=== PATIENT | female | born 1995 | race African-American/Black ===

== ENCOUNTER 2018-08-27 21:56 | Emergency (ER) | payer SELFPAY ==
--- NOTE | 2018-08-27 23:13 | ED ---
Headache - HPI Summary HPI Summary: This patient is a 23 year old female presenting to the emergency room with a cc of headache that began earlier today. She states she has also developed fever and chills. She took 800mg of Advil with improvement. She rates the pain 4/10 in severity at this time. Pt also c/o a mild sore throat without a cough or abd pain. The patient did return from [facility] on 08-13-18 without and sx developing until today. - History Of Current Complaint Chief Complaint: EDHeadache Stated Complaint: HEADACHE, CHILLS Time Seen by Provider: 08/27/18 22:52 Hx Obtained From: Patient Onset/Duration: Started days ago, Still Present Initially Headache Was: Initial Pain Scale(0-10)= - 7 Currently Pain Is: Current Pain Scale(0-10)= - 4 Timing: Constant Associated Signs And Symptoms: Fever, Other (Noted In Comments) - chills - Allergies/Home Medications Allergies/Adverse Reactions: Allergies Allergy/AdvReac Type Severity Reaction Status Date / Time No Known Allergies Allergy Verified 08/27/18 22:06 Home Medications: Home Medications NK [No Home Medications Reported] 08/27/18 [History Confirmed 08/27/18] PMH/Surg Hx/FS Hx/Imm Hx Endocrine/Hematology History: Denies: Hx Unexplained Bleeding Cardiovascular History: Denies: Hx Cardiac Arrest, Hx Congestive Heart Failure, Hx Deep Vein Thrombosis, Hx Hypotension Respiratory History: Denies: Hx Pneumonia, Hx Pulmonary Embolism Infectious Disease History: No Infectious Disease History: Reports: Traveled Outside the [place] in Last 30 Days - [place] - Family History Known Family History: Positive: Non-Contributory Negative: Blood Disorder - Social History Alcohol Use: Occasionally Substance Use Type: Reports: None Smoking Status (MU): Never Smoked Tobacco Review of Systems Positive: Fever, Chills Positive: Sore Throat Negative: Cough Negative: Abdominal Pain Positive: Headache All Other Systems Reviewed And Are Negative: Yes Physical Exam - Summary Physical Exam Summary: Appearance: Well appearing, no pain distress Skin: warm, dry, reflects adequate perfusion Head/face: normal Eyes: EOMI, CURT ENT: normal Neck: supple, non-tender Respiratory: CTA, breath sounds present Cardiovascular: RRR, pulses symmetrical Abdomen: non-tender, soft Musculoskeletal: normal, strength/ROM intact Neuro: normal, sensory motor intact, A&Ox3 Triage Information Reviewed: Yes Vital Signs On Initial Exam: Initial Vitals Temp Pulse Resp BP Pulse Ox 102.1 F 107 16 114/73 99 08/27/18 21:58 08/27/18 21:58 08/27/18 21:58 08/27/18 21:58 08/27/18 21:58 Vital Signs Reviewed: Yes Diagnostics - Vital Signs Vital Signs Temp Pulse Resp BP Pulse Ox 08/27/18 21:58 102.1 F 107 16 114/73 99 - Laboratory Result Diagrams: 08/27/18 23:39 08/27/18 23:39 Lab Statement: Any lab studies that have been ordered have been reviewed, and results considered in the medical decision making process. - Radiology CXR Radiology Interpretation Completed By: ED Physician Summary of Radiographic Findings: no acute disease. Pending official report Headache Course/Dx - Course Assessment/Plan: This patient is a 23 year old female presenting to the emergency room with a cc of headache that began earlier today. CXR reveals, no acute disease. Pending official report. Bloodwork and UA obtained. Pt was negative for influenza. Her headache has resolved at this point. Pt offered LP to r/o meningitis she declined wants to go home and f/u pcp. Strict return precautions given. - Diagnoses Provider Diagnoses: Fever, Viral syndrome Discharge - Sign-Out/Discharge Documenting (check all that apply): Patient Departure Patient Received Moderate/Deep Sedation with Procedure: No - Discharge Plan Condition: Stable Disposition: HOME Patient Education Materials: Viral Syndrome (ED) Referrals: [facility] [place] [facility] REFERRAL [Outside] Additional Instructions: Follow up with your primary care physician in 1-3 days. RETURN TO THE EMERGENCY DEPARTMENT FOR CHANGING OR WORSENING SYMPTOMS - Attestation Statements Document Initiated by Scribe: Yes Documenting Scribe: Gato Dillon Provider For Whom Scribe is Documenting (Include Credential): Omkar Lua MD Scribe Attestation: Gato Nolan , scribed for Omkar Lua MD on 08/28/18 at 0214. Status of Scribe Document: Ready
[2018-08-27 23:51] LABS: ABS Basophils 0.1 10^3/ul (0-0.2); ABS Eosinophils 0 10^3/ul (0-0.6); ABS Monocytes 0.7 10^3/ul (0-0.8); ABS Neutrophils 11.4 10^3/ul (1.5-7.7); ABS Nucleated RBC 0 10^3/ul; Eosinophil % 0 %; Hematocrit 37 % (35-47); Hemoglobin 12.3 g/dl (12.0-16.0); Lymphocyte % 7.9 %; Mean Corpuscular HGB Conc 33 g/dl (31-36); Mean Corpuscular Hemoglobin 27 pg (27-31); Mean Corpuscular Volume 81 fL (80-97); Mean Platelet Volume 7.6 fL (7.4-10.4); Nucleated Red Blood Cells % 0; Platelet Count 246 10^3/ul (150-450); Red Blood Count 4.61 10^6/ul (4.00-5.40); Red Cell Distribution Width 16 % (10.5-15); White Blood Count 13.2 10^3/ul (3.5-10.8)
[2018-08-28] LABS: Activated Partial Thrombo Time 32.7 seconds (26.0-36.3); INR 1.24 (0.77-1.02)
[2018-08-28 00:11] LABS: ALT 14 U/L (7-52); AST 15 U/L (13-39); Albumin 4.3 g/dL (3.2-5.2); Albumin/Globulin Ratio 1.4 (1-3); Alkaline Phosphatase 41 U/L (34-104); Anion Gap 7 mmol/L (2-11); BUN/Creatinine Ratio 11.9 (8-20); Blood Urea Nitrogen 8 mg/dL (6-24); CO2 Carbon Dioxide 24 mmol/L (22-32); Calcium 9.3 mg/dL (8.6-10.3); Chloride 103 mmol/L (101-111); EGFR African American 134.4 (>60); EGFR Non-African American 111.1 (>60); Globulin 3.1 g/dL (2-4); Glucose 122 mg/dL (70-100); Potassium 3.4 mmol/L (3.5-5.0); Sodium 134 mmol/L (135-145); Total Protein 7.4 g/dL (6.4-8.9)
[2018-08-28 00:18] LABS: HCG Pregnancy < 0.60 mIU/mL
[2018-08-28 00:42] LABS: Urine Appearance Clear; Urine Bacteria Absent (Absent); Urine Bilirubin Negative (Negative); Urine Blood 1+ (Negative); Urine Color Straw; Urine Glucose Negative (Negative); Urine Ketones Negative (Negative); Urine Nitrite Negative (Negative); Urine Protein Negative (Negative); Urine Red Blood Cell Trace(0-2/hpf) (Absent); Urine Specific Gravity 1.003 (1.010-1.030); Urine Squamous Epithelial Cell Present (Absent); Urine Urobilinogen Negative (Negative); Urine White Blood Cell Absent (Absent)
[2018-08-28 00:53] LABS: Influenza A Molecular NEGATIVE (Negative); Influenza B Molecular NEGATIVE (Negative)
[2018-08-28 01:53] VITALS: BP 108/66
== END 2018-08-28 01:52 | disposition home or self-care (01) ==
LOC: ED 21:56
DX: B34.9 Viral infection, unspecified (principal); R50.9 Fever, unspecified; R51 Headache; J02.9 Acute pharyngitis, unspecified
CPT/HCPCS: 36415; 71046; 80053; 81003; 81015; 83605; 84702; 85025; 85610; 85730; 87040; 87651; 99282

== ENCOUNTER 2018-09-02 14:09 | Observation (INO) | payer OTHER ==
--- NOTE | 2018-09-02 16:28 | ED ---
Headache - HPI Summary HPI Summary: This pt is a 23 y/o female presenting to [facility] c/o headache since 08/27/18. Pt reports she came to the ED on 08/27/18 for fever, headache, neck and back pain and was diagnosed with a viral syndrome. Pt notes she came back to the ED on 09/15 for the same symptoms persisting and additionally incoherent words. Pt had a lumbar puncture on 07/29 that was negative for meningitis. Pt presents to the ED today with persistent headache, eye pain, back pain, neck pain. Pt states her headache is aggravated with sitting up and ambulating and it is alleviated with lying down. She reports she has been eating well and drinking a lot of liquids. Denies fever recently, blurry vision, nausea, vomiting. Pt has been taking Tylenol, Advil, and Aleve for her pain with minimal relief. LMP: started on 08/23/18. - History Of Current Complaint Chief Complaint: EDHeadache Stated Complaint: HEADACHE Hx Obtained From: Patient Onset/Duration: Started days ago, Still Present Currently Pain Is: Current Pain Scale(0-10)= - 4, Moderate Timing: Days Location of Headache: Diffuse Aggravating Factor: Exertion, Other - sitting up Allevating Factors: Other (Noted In Comments) - lying down Associated Signs And Symptoms: Neck Pain, Other (Noted In Comments) - POS: back pain, pain in eyes. NEG: fever, blurry vision, nausea, vomiting. - Allergies/Home Medications Allergies/Adverse Reactions: Allergies Allergy/AdvReac Type Severity Reaction Status Date / Time No Known Allergies Allergy Verified 08/29/18 14:51 PMH/Surg Hx/FS Hx/Imm Hx Endocrine/Hematology History: Denies: Hx Unexplained Bleeding Cardiovascular History: Denies: Hx Cardiac Arrest, Hx Congestive Heart Failure, Hx Deep Vein Thrombosis, Hx Hypotension, Hx Pacemaker/ICD Respiratory History: Denies: Hx Pneumonia, Hx Pulmonary Embolism - Surgical History Surgery Procedure, Year, and Place: WISDOM TEETH Infectious Disease History: No Infectious Disease History: Reports: Traveled Outside the [place] in Last 30 Days - Family History Known Family History: Negative: Hypertension, Diabetes, Blood Disorder - Social History Alcohol Use: Occasionally Substance Use Type: Reports: None Smoking Status (MU): Never Smoked Tobacco Review of Systems Negative: Fever, Chills Eyes: Other - POS: eye pain bilateral Negative: Blurred Vision Negative: Vomiting, Nausea Musculoskeletal: Other - POS: neck and back pain Positive: Headache All Other Systems Reviewed And Are Negative: Yes Physical Exam - Summary Physical Exam Summary: VITAL SIGNS: Reviewed. GENERAL: Patient is a well-developed and nourished female who is lying comfortable in the stretcher. Patient is not in any acute respiratory distress. HEAD AND FACE: No signs of trauma. No ecchymosis, hematomas or skull depressions. No sinus tenderness. EYES: PERRLA, EOMI x 2, No injected conjunctiva, no nystagmus. EARS: Hearing grossly intact. Ear canals and tympanic membranes are within normal limits. MOUTH: Oropharynx within normal limits. NECK: Supple, trachea is midline, no adenopathy, no JVD, no carotid bruit, no c- spine tenderness, neck with full ROM. CHEST: Symmetric, no tenderness at palpation LUNGS: Clear to auscultation bilaterally. No wheezing or crackles. CVS: Regular rate and rhythm, S1 and S2 present, no murmurs or gallops appreciated. ABDOMEN: Soft, non-tender. No signs of distention. No rebound, no guarding, and no masses palpated. Bowel sounds are normal. EXTREMITIES: FROM in all major joints, no edema, no cyanosis or clubbing. NEURO: Alert and oriented x 3. No acute neurological deficits. Speech is normal and follows commands. SKIN: Dry and warm Triage Information Reviewed: Yes Vital Signs On Initial Exam: Initial Vitals Temp Pulse Resp BP Pulse Ox 97.5 F 142 18 137/95 100 09/02/18 14:10 09/02/18 14:10 09/02/18 14:10 09/02/18 14:10 09/02/18 14:10 Vital Signs Reviewed: Yes Diagnostics - Vital Signs Vital Signs Temp Pulse Resp BP Pulse Ox 09/02/18 14:10 97.5 F 142 18 137/95 100 - Laboratory Result Diagrams: 09/03/18 06:23 09/03/18 06:23 Lab Statement: Any lab studies that have been ordered have been reviewed, and results considered in the medical decision making process. - CT Brain CT CT Interpretation Completed By: Radiologist Summary of CT Findings: IMPRESSION: No acute intracranial abnormality. Dr. Phelps has reviewed this report. Cervical spine CT CT Interpretation Completed By: Radiologist Summary of CT Findings: IMPRESSION: 1. No acute cervical spine fracture or subluxation. 2. The cervical lordosis is mildly reversed. 3. There is an increase in epidural isodensity within the upper cervical spine,. most significant at the C2 vertebral level. Differential considerations include. epidural fluid collection and epidural hematoma, although additional pathology. cannot be excluded. Correlation with MRI of the cervical spine with/without. contrast is recommended. 4. Minimal narrowing of the thecal sac is identified in the C2 vertebral level. due to the abnormal epidural density. 5. Nonspecific mildly enlarged bilateral level II cervical lymph nodes. visualized. 6. Additional findings described above. Dr. Phelps has reviewed this report. - EKG 14:21 Cardiac Rate: NL - at 67 bpm EKG Rhythm: Sinus Rhythm Summary of EKG Findings: No ST elevations. Re-Evaluation - Re-Evaluation First Eval Re-Evaluation Time: 19:44 Comment: I reviewed Dr. Brooks' recommendation with the pt and father. Pt continues to have headache and neck pain. Headache Course/Dx - Course Assessment/Plan: Blood work without a significant abnormality except for PE is a 41, AST of 12, CRP of 8.48, urinalysis is negative for UTI. Initially in the ED the patient was given 2 L IV fluids, the patient was given Benadryl, Reglan, and morphine for the pain. At approximately 2 hours of observation the patient continues to have neck pain and pain in the results called. At this point I discussed my findings test results with Dr. Brooks from anesthesiology and she recommends no blood patch, she recommends caffeine, IV fluids, and analgesics. However the patient continues to have pain therefore the patient was given and a muscle relaxant and some prednisone for inflammation. At this point I believe that the patient needs admission for pain control and observation. Therefore discussed my physical exam, findings and test results with Dr. La from the hospitalist services who agrees to admit the patient. However, she recommends to do a head CT and also with the C-spine CT. Head CT impression: No acute intracranial abnormality. C spine CT IMPRESSION: 1. No acute cervical spine fracture or subluxation. 2. The cervical lordosis is mildly reversed. 3. There is an increase in epidural isodensity within the upper cervical spine,. most significant at the C2 vertebral level. Differential considerations include. epidural fluid collection and epidural hematoma, although additional pathology. cannot be excluded. Correlation with MRI of the cervical spine with/without. contrast is recommended. 4. Minimal narrowing of the thecal sac is identified in the C2 vertebral level. due to the abnormal epidural density. 5. Nonspecific mildly enlarged bilateral level II cervical lymph nodes. visualized. 6. Additional findings described above. At this time I discussed my physical exam, findings and test results with Dr. Coronado from an neurosurgery and he requested for the patient to get an MRI and admission to the hospital. Dr. Coronado will consult for this patient. I discussed my physical exam and findings with Dr. La from the hospital services was accepted the patient for admission. At this point the patient is more comfortable. The patient was given pain medications and she reports that the pain has improved. However because of abnormal findings and the C-spine CT we will admit the patient for pain control and the MRI as well as neurosurgery consult. - Diagnoses Differential Diagnosis/HQI/PQRI: Epidural Hematoma, Subdural Hematoma, Migraine , Sinus Headache, Tension Headache Provider Diagnoses: Intractable headache, Neck pain - Physician Notifications Discussed Care Of Patient With: Roxanne Brooks - anesthesiologist Time Discussed With Above Provider: 19:37 Instructed by Provider To: Other - Discussed pt care with Dr. Brooks, anesthesiologist, who recommends for pt to take caffeine, continue fluids and ibuprofen. If she is not better then she is to see her PCP and schedule a blood patch with an anesthesiologist. [21:44] I discussed with Dr. Coronado, neurosurgeon, who recommends MRI for abnormal cervical spine CT and admission to hospitalist. [21:52] Discussed with Dr. La, hospitalist, who accepted the pt for admission. Discharge - Sign-Out/Discharge Documenting (check all that apply): Patient Departure - Admit to [facility] [place] Patient Received Moderate/Deep Sedation with Procedure: No - Discharge Plan Condition: Stable Disposition: ADMITTED TO [facility] - Billing Disposition and Condition Condition: STABLE Disposition: Admitted to [facility] - Attestation Statements Document Initiated by Scribe: Yes Documenting Scribe: Marianne Choe Provider For Whom Scribe is Documenting (Include Credential): Sanjay Phelps MD Scribe Attestation: Marianne Nolan, scribed for Sanjay Phelps MD on 09/03/18 at 1053. Scribe Documentation Reviewed: Yes Provider Attestation: The documentation as recorded by the scribe, Marianne Choe accurately reflects the service I personally performed and the decisions made by me, Sanjay Phelps MD Status of Scribe Document: Viewed
[2018-09-02] MEDS ORDERED: NS 0.9% 1000 ML** 2,000 ML IV ONE (16:35)
[2018-09-02] MEDS ORDERED: Morphine VIAL* 10 MG/ML 1 ML VIAL IV ONE (16:35)
[2018-09-02] MEDS ORDERED: Metoclopramide IV* 5 MG/ML 2 ML VIAL IV ONE (16:35)
[2018-09-02] MEDS ORDERED: diPHENhydraMINE IV* 50 MG/ML 1 ml VIAL (BENADRYL) IV ONE (16:35)
[2018-09-02] MEDS ORDERED: diPHENhydraMINE PO* 25 MG ONE (17:11)
[2018-09-02 17:34] LABS: ABS Basophils 0.1 10^3/ul (0-0.2); ABS Eosinophils 0.1 10^3/ul (0-0.6); ABS Monocytes 0.4 10^3/ul (0-0.8); ABS Neutrophils 4.5 10^3/ul (1.5-7.7); ABS Nucleated RBC 0 10^3/ul; Eosinophil % 1.6 %; Hematocrit 37 % (35-47); Hemoglobin 12.3 g/dl (12.0-16.0); Lymphocyte % 28.7 %; Mean Corpuscular HGB Conc 33 g/dl (31-36); Mean Corpuscular Hemoglobin 27 pg (27-31); Mean Corpuscular Volume 81 fL (80-97); Mean Platelet Volume 7.3 fL (7.4-10.4); Nucleated Red Blood Cells % 0; Platelet Count 334 10^3/ul (150-450); Red Blood Count 4.59 10^6/ul (4.00-5.40); Red Cell Distribution Width 16 % (10.5-15); White Blood Count 7.1 10^3/ul (3.5-10.8)
[2018-09-02] MEDS ORDERED: diPHENhydraMINE PO* 25 MG PO ONE (17:36)
[2018-09-02 17:51] LABS: Albumin 4.1 g/dL (3.2-5.2); Albumin/Globulin Ratio 1.3 (1-3); BUN/Creatinine Ratio 11.9 (8-20); Calcium 9.5 mg/dL (8.6-10.3); EGFR African American 134.4 (>60); EGFR Non-African American 111.1 (>60); Globulin 3.2 g/dL (2-4); Total Bilirubin 0.3 mg/dL (0.2-1.0); Total Protein 7.3 g/dL (6.4-8.9)
[2018-09-02 18:49] LABS: Erythrocyte Sed Rate 41 mm/Hr (0-14)
[2018-09-02 19:10] LABS: C Reactive Protein 8.48 mg/L (<8.01)
[2018-09-02] MEDS ORDERED: Cyclobenzaprine TAB* 10 MG PO ONE (19:54)
[2018-09-02] MEDS ORDERED: Dexamethasone IV* 4 MG/ML 1 ML (4 MG) IV SLOW PU ONE (19:54)
[2018-09-02 20:23] LABS: Urine Appearance Clear; Urine Bilirubin Negative (Negative); Urine Blood Negative (Negative); Urine Color Yellow; Urine Glucose Negative (Negative); Urine Ketones Negative (Negative); Urine Nitrite Negative (Negative); Urine Protein Negative (Negative); Urine Specific Gravity 1.014 (1.010-1.030); Urine Urobilinogen Negative (Negative)
[2018-09-02] MEDS ORDERED: Acetaminophen TAB* 325 MG PO PRN (22:45)
[2018-09-03] MEDS ORDERED: oxyCODONE/Acetamin 5/325 MG* TAB PO PRN (01:35)
[2018-09-03] MEDS ORDERED: Morphine INJ* 2 MG/ML 1 ML SYRINGE (TWO MG - NEW SYRINGE VERSION) IV PRN (01:35)
--- NOTE | 2018-09-03 02:17 | HP ---
CC: [facility] * HISTORY AND PHYSICAL: DATE OF ADMISSION: 09/02/18 PROVIDER: Lisset Payton NP PRIMARY CARE PROVIDER: [facility] ATTENDING PHYSICIAN WHILE IN THE HOSPITAL: Dr. La * (dictated by Lisset Payton NP). CHIEF COMPLAINT: Headache. HISTORY OF PRESENT ILLNESS: Ms. Amaya is a 23-year-old female with no significant past medical history. The patient initially presented to the emergency room on 08/27/18 with complaints of fever, headache, and neck pain. She was given IV fluids and medications in the emergency room and discharged home and told to treat her headache with [id number] medications. The patient had continued headaches and neck pain and re-presented to the emergency room on 08/29/18. At that time, they did a lumbar puncture. 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 The CSF fluid was within normal limits. The patient had blood cultures drawn, again that were within normal limits showing no growth. Again, the patient was given IV fluids and medications in the emergency room and discharged home. The patient again reports to the emergency room on 09/02/18 complaining of headache and neck pain. She denies any fevers. Denies any nausea, vomiting, or diarrhea. Denies any recent sick contacts. She does report she was recently was in [place] for 5 weeks and at that time, she did not take medications for malaria as directed. The patient did have blood to look for parasites that was negative. She had a flu A and B swab that was also negative on previous presentations to the emergency room. At this time, the patient continues to have neck pain and headache. She reports the headache is a throbbing sometimes pressure and squeezing. She denies any photophobia. She does report neck pain that becomes worse with sitting forward. While in the emergency room, the patient had a CT of the brain and C-spine. C- spine imaging revealed no acute cervical spine fracture or subluxation. Cervical lordosis with mild reverse. There is an increased epidural isodensity in the upper cervical spine, most significant at C2 vertebral level. Differential considerations include epidural fluid collection, epidural hematoma , although additional pathology cannot be excluded and recommended MRI with and without contrast. They do report mild narrowing of the thecal sac is identified in the C2 vertebral level due to the abnormal epidural density. Nonspecific mildly enlarged bilateral level 2 cervical lymph nodes were visualized. No additional findings. Due to the concern of possible hematoma in the cervical region and continued headache, we were asked by the emergency room physician to see and evaluate her for admission. PAST MEDICAL HISTORY: Significant for acne. PAST SURGICAL HISTORY: No surgical history. HOME MEDICATIONS: Topical acne treatment. ALLERGIES: No known drug allergies. FAMILY HISTORY: No reported history of coronary artery disease, diabetes. REVIEW OF SYSTEMS: The patient has no documented fever. No unintended weight loss. There is no double vision. No ear discharge. No rhinorrhea. She does report trouble focusing with her eyes at times. No current issue at this presentation. The patient does complain of neck pain and headache. Reports the headache is throbbing and pressure, worse with bringing her head forward. She denies any chest pain, shortness of breath, orthopnea, or nocturnal dyspnea. She denies any nausea, vomiting, diarrhea, urinary frequency, or urgency. She denies any seizures or loss of consciousness. Denies any skin ulcerations. Review of 14 systems was completed; all others were negative. PHYSICAL EXAMINATION GENERAL: At this time, Ms. Amaya is a 23-year-old female. She is resting. She is alert and oriented, resting on the stretcher in the emergency room. She does not appear to be in any acute distress. VITAL SIGNS: Blood pressure 128/89, heart rate 75, respirations were 16, O2 saturation 99%, temperature was 98.6. HEENT: Head is atraumatic, normocephalic. Eyes: EOMs are intact. Sclerae anicteric and not pale. Oral mucosa appears to be moist. No oropharyngeal erythema. NECK: Supple mild tenderness with movement. LUNGS: Clear to auscultation bilaterally. No wheezes, rales, or rhonchi. CARDIAC: S1, S2. Regular rate and rhythm. No murmurs, rubs, or gallops. ABDOMEN: Soft and nontender. Bowel sounds are present x4. EXTREMITIES: She is able to move all 4 extremities with 5/5 strength. Radial pulses are +2 bilaterally. NEUROLOGIC: She is awake, alert, and oriented x3. Speech is clear. Thought process intact. Handgrips are equal. Tongue is midline. No pronator drift is noted. Upper body strength is grossly intact. SKIN: Intact. DIAGNOSTIC STUDIES/LAB DATA: WBCs were 7.1, RBCs 4.59, hemoglobin 12.3, hematocrit 37, platelet count 334. Sodium 141, potassium 4.0, chloride 109, carbon dioxide was 28, anion gap was 4, BUN was 8, creatinine 0.67, lactic acid 0.7, glucose was 91, calcium 9.5. Total bilirubin 0.30. ASTs were 12, ALTs were 11, alkaline phosphatase was 41. C-reactive protein was 8.48 down from 122.15. Urine was within normal limits. ESR was 41. She had a CT of the brain, which showed no acute intracranial pathology. No masses. She had a CT of the C-spine. Radiologist's impression: 1. No acute cervical spine fracture or subluxation. 2. Cervical lordosis, mildly reversed. 3. There is an increased epidural isodensity within the upper cervical spine more significant at the C2 vertebral level. Differential considerations include epidural fluid collection and epidural hematoma, although additional pathology cannot be excluded and recommended an MRI with and without contrast. There is minimal narrowing of the thecal sac that is identified at C2 vertebral level due to abnormal epidural density, nonspecific and mildly enlarged bilateral level 2 cervical lymph nodes visualized. ASSESSMENT AND PLAN: Ms. Amaya is a 23-year-old female with no significant past medical history except for recent travel to [place], for which she stayed there for 5 weeks, who presented to the emergency room for the 3rd visit complaining of headache and neck pain. The patient does report that she last had a fever on Friday, which was 102, has had no fever since, but does report she is taking Tylenol and ibuprofen around the clock. She will admitted under observation for: 1. Headache: It is unclear of the cause of her headache at this time. She has recently had an LP which did not show any bacterial meningitis. Her headache could be associated with post-LP headache. Her cervical C-spine does show concern for possible epidural fluid collection versus hematoma. She did have an MRI with and without contrast that is currently pending. Dr. Coronado from Neurosurgery has also been contacted due to concern of epidural fluid collection versus hematoma and is currently awaiting MRI results. We will treat her headache with Tylenol as needed for pain as this time. 2. Neck pain: I suspect the neck pain could be related to possible epidural fluid collection versus epidural hematoma. At this time, she had an MRI with and without contrast, which is currently pending. Further recommendations will be based on conclusion of further imaging. 3. FEN: She can have a regular diet. 4. Code status: She is a full code. 5. DVT prophylaxis: We will encourage ambulation as she does not have any risk factors at this time. TIME SPENT: Time spent on this admission was 60 minutes, greater than half that time was spent [id number] with the patient and her father obtaining my history and physical and the events leading thus far to her hospitalization, performing my physical exam, and implementing my plan of care. I have discussed this with my attending, Dr. La; she is in agreement with my plan. LISSET PAYTON, BROKERAGE MANAGER [id number]/[facility] #: [id number] MTDAnna
[2018-09-03 06:48] LABS: ABS Basophils 0 10^3/ul (0-0.2); ABS Eosinophils 0 10^3/ul (0-0.6); ABS Lymphocytes 1.4 10^3/ul (1.0-4.8); ABS Monocytes 0.4 10^3/ul (0-0.8); ABS Nucleated RBC 0 10^3/ul; Eosinophil % 0.1 %; Hematocrit 37 % (35-47); Hemoglobin 12.2 g/dl (12.0-16.0); Lymphocyte % 15.7 %; Mean Corpuscular HGB Conc 33 g/dl (31-36); Mean Corpuscular Hemoglobin 27 pg (27-31); Mean Corpuscular Volume 81 fL (80-97); Mean Platelet Volume 7.4 fL (7.4-10.4); Nucleated Red Blood Cells % 0.1; Platelet Count 368 10^3/ul (150-450); Red Blood Count 4.53 10^6/ul (4.00-5.40); Red Cell Distribution Width 16 % (10.5-15); White Blood Count 8.8 10^3/ul (3.5-10.8)
[2018-09-03 07:04] LABS: Calcium 9.8 mg/dL (8.6-10.3); EGFR African American 168.8 (>60); EGFR Non-African American 139.5 (>60); Potassium 4.2 mmol/L (3.5-5.0)
[2018-09-03] MEDS ORDERED: oxyCODONE TAB* 5 MG TAB PO PRN (10:27)
--- NOTE | 2018-09-03 10:33 | PN ---
"Progress Note - Progress Note Date of Service: 09/03/18 Note: Search Terms: tomi condon, 1995 Search Date: 09/03/2018 10:33:04 AM The Drug Utilization Report below displays all of the controlled substance prescriptions, if any, that your patient has filled in the last twelve months. The information displayed on this report is compiled from pharmacy submissions to the Department, and accurately reflects the information as submitted by the pharmacies. This report was requested by: Gilbert Hua | Reference #: [id number] There are no results for the search terms that you entered."
[2018-09-03 11:28] VITALS: BP 124/74
--- NOTE | 2018-09-03 12:01 | DS ---
DISCHARGE SUMMARY: DATE OF ADMISSION: DATE OF DISCHARGE: 09/03/18 HOSPITAL COURSE: This 23-year-old woman was admitted because of a headache. She states herself that she thought originally she had a viral illness giving her headache. She came to the emergency room complaining of headaches at nighttime more than once. She had a lumbar puncture with normal results. Following this, she said she had a different type of headache, which she attributed to the lumbar p uncture. She had a CT scan of the brain which showed an increased epidural isodensity in the upper c ervical spine. MRI showed some thickening of the dura and no fluid collection. I have spoken direct ly to Dr. Coronado who has evaluated her and felt that she could go home. By her report, he did no t find any significant findings. Her headache today on the day of discharge was level 6. She had had some acetaminophen. Her pain wa s worse before the acetaminophen; however, she felt she still had too much of headache to be able to sit in classes. I have given her a note to be excused from classes through 09/06/18. She should fol low up with the [facility], particularly if she is still having headache, althoug h it may simply persist for more than a few days. I noted she had no fever here. She did have some inflammatory markers. Her sedimentation rate was 41 on 09/02/18, it was only measured to once. Her CRP was measured twice that was 122 on 08/29/18 and 8.48 on 09/02/18. FINAL DIAGNOSIS: Postlumbar puncture headache. DISCHARGE MEDICATION: Oxycodone 5 mg one half to one tablet every 4 hours p.r.n., dispensed 15. CONDITION ON DISCHARGE: Stable. DISPOSITION ON DISCHARGE: Discharged home. [id number]/[facility] #: [id number]
--- NOTE | 2018-09-04 09:13 | CONS ---
CONSULTATION NOTE: DATE OF CONSULT: 09/03/18 HISTORY OF PRESENT ILLNESS: The patient is a very pleasant 23-year-old female who initially presented to the emergency room on 08/27/18 with complaints of fever, headache and neck pain. The patient had IV fluids and medications and was discharged home. The patient continued to have headaches and neck pain and returned to the emergency room on 08/29/18. The patient by that time had the lumbar puncture with no signs of infection, as well as blood cultures with no growth. The patient returned on 09/02/18 again to the emergency room because of headache and neck pain. It was postural. The patient reports that her previous headache had improved. She continued with headache when she was getting out of the bed, which was related to recumbency. The patient had a CT scan of the brain that was negative and had the CT of the cervical spine that revealed increased density in the epidural space and for this reason, had an MRI , which revealed patchy meningeal enhancement and was admitted by the hospitalist service. The patient at this point denies any headache. Denies any nausea or vomiting. Denies any seizures. Denies any problems with her vision or her speech. Denies any problems with her hearing. She denies diplopia. She denies any weakness, numbness, or tingling of extremities. She ambulates with difficulty. She denies any urinary or GI incontinence. 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 She is single and she is accompanied at the bedside by her father. PAST MEDICAL HISTORY: Acne. PAST SURGICAL HISTORY: Negative. MEDICATIONS: Topical acne treatment. ALLERGIES: No known drug allergies. FAMILY HISTORY: Noncontributory. SOCIAL HISTORY: Tobacco negative. Alcohol negative. Recreational use negative. Of note, the patient has a recent travel to [facility] for 5 weeks and she was reported not to take any medication for malaria. PHYSICAL EXAM: The patient is not in acute distress. She is awake, alert, oriented x3. Her pupils are equal and reactive. Cranial nerves II through XII are grossly intact. Motor 5/5 in all extremities. Sensory grossly intact to light touch. Deep tendon reflexes are +2 bilaterally. No clonus. No Babinski. Pizarro's negative. Straight leg raise negative in the sitting position. The patient has no tenderness to palpation of the thoracic or lumbar spine. She has tenderness of the cervical spine. signs. DIAGNOSTIC STUDIES: The patient had a CT scan of the brain that revealed normal findings. The patient had a CT scan of the cervical spine that revealed mild lordosis with isodense changes at the epidural space at C2 level. The patient had also an MRI of the cervical spine revealing patchy meningeal enhancement with an anterior thecal sac from C2 to C3. No evidence of abscess or hematoma without evidence of stenosis or neural foraminal stenosis. ASSESSMENT: The patient is a very pleasant 23-year-old female with post LP headaches. PLAN: Patient at this point has complete resolution of her symptoms. Based on her MRI, suspect that the changes are related to post lumbar puncture headaches with intracranial hypertension although other etiologies maybe considered but not very likely. The patient understands imaging findings and would like to be discharged home. Repeat MRI may be considered if the patient's symptoms persist particularly in view of post LP headaches. The patient can be considered for an epidural blood patch. I greatly appreciate Internal Medicine' s care. Thank you for allowing us to participate in the care of this patient. Please do not hesitate to contact our office in case you have any further questions or concerns regarding the care of this patient. [id number]/[facility] #: [id number] ANT
== END 2018-09-03 11:35 | disposition home or self-care (01) ==
LOC: ED 14:09 → MED 09-03 01:34
PROVIDERS: ADMIT Internal Medicine; ATTEND Internal Medicine
DX: G97.1 Other reaction to spinal and lumbar puncture (principal); Y84.4 Aspiration of fluid as the cause of abnormal reaction of the patient, or of later complication, without mention of misadventure at the time of the procedure; R51 Headache; R50.9 Fever, unspecified; M54.2 Cervicalgia
CPT/HCPCS: 36415; 70450; 72125; 72156; 80048; 80053; 81003; 83605; 85025; 85652; 86140; 93005; 96361; 96374; 96375; 96376; 99282; A9270-GY; A9579; G0378; J1100; J2270; J2765